=== PATIENT | male | born 1990 | race Caucasian/White ===

== ENCOUNTER 2020-02-08 14:03 | Emergency (ER) | payer BC ==
[2020-02-08] MEDS ORDERED: DEXAMETHASONE SOD PHOSPHATE 10 MG/ML 1 ML VIAL IV STA (14:30)
[2020-02-08] MEDS ORDERED: SODIUM CHLORIDE 0.9% 1,000 ML IV ONE (14:30)
[2020-02-08 14:44] VITALS: RESP 18
--- NOTE | 2020-02-08 14:44 | ED ---
General Adult HPI - General Chief complaint: Allergic Reaction Stated complaint: Allergic Reaction Time Seen by Provider: 02/08/20 14:28 Source: patient, RN notes reviewed, old records reviewed Mode of arrival: ambulatory Limitations: no limitations - History of Present Illness Initial comments: 29-year-old male presenting for evaluation suspected ALLERGIC reaction. Patient admits to drinking 5 shots of vodka. He began to feel somewhat congested, he taken a Zyrtec which was several months . He began noticing some tongue swelling on the left side and some increased congestion. Suspect this may have been an adverse or ALLERGIC reaction to the medication he had taken. He states he was in a home with several cats but does not have a known ALLERGY to cats. He denies vomiting or abdominal pain. - Related Data Allergies Allergy/AdvReac Type Severity Reaction Status Date / Time No Known Allergies Allergy Verified 02/08/20 14:09 Review of Systems ROS Statement: Those systems with pertinent positive or pertinent negative responses have been documented in the HPI. ROS Other: All systems not noted in ROS Statement are negative. Past Medical History Past Medical History: No Reported History History of Any Multi-Drug Resistant Organisms: None Reported Past Surgical History: Adenoidectomy, Tonsillectomy Additional Past Surgical History / Comment(s): facial surgery Past Psychological History: No Psychological Hx Reported Smoking Status: Current every day smoker Past Alcohol Use History: Daily Past Drug Use History: Marijuana General Exam Limitations: no limitations General appearance: alert, in no apparent distress Head exam: Present: atraumatic, normocephalic Eye exam: Present: normal appearance, PERRL ENT exam: Present: normal exam, mucous membranes moist, other (No tongue or lip swelling, mild pharyngeal erythema, no tonsillar swelling, no uvular swelling.) Neck exam: Present: normal inspection. Absent: tenderness, meningismus Respiratory exam: Present: normal lung sounds bilaterally. Absent: respiratory distress, wheezes Cardiovascular Exam: Present: normal rhythm, tachycardia GI/Abdominal exam: Present: soft. Absent: distended, tenderness, guarding, rebound Neurological exam: Present: alert, oriented X3, CN II-XII intact. Absent: motor sensory deficit Psychiatric exam: Present: normal affect, normal mood Skin exam: Present: warm, dry, intact, erythema (Generalized erythema) Course Vital Signs 02/08/20 02/08/20 14:04 14:42 Temperature 98.9 F Pulse Rate 133 H 101 H Respiratory 22 18 Rate Blood Pressure 140/93 129/95 O2 Sat by Pulse 98 96 Oximetry - Reevaluation(s) Reevaluation #1: 02/08/20 15:14 Patient not driving he's been picked up by his . EKG Findings - EKG Comments: EKG Findings:: EKG: Sinus tachycardia, rate of 110, NH interval 138, QRS duration 84, QTC 411, no ST segment elevation. Medical Decision Making - Medical Decision Making 29-year-old male with ALLERGIC first adverse reaction to did Zyrtec versus alcohol. Patient is monitored in the emergency Department, no difficulty breathing, his tachycardia resolves with just IV hydration and IV steroids. As this may have been an adverse reaction to antihistamines, Benadryl was not given. He is instructed to abstain from this medication as well as alcohol. He will return with worsening or changing symptoms. Follow-up with his primary care physician. Disposition Clinical Impression: Allergic reaction Disposition: HOME SELF-CARE Instructions (If sedation given, give patient instructions): General Allergic Reaction (ED) Is patient prescribed a controlled substance at d/c from ED?: No Referrals: None,Stated [Primary Care Provider] - 1-2 days Michele Chino [STAFF PHYSICIAN] - 1-2 days Time of Disposition: 15:14
[2020-02-08 15:31] VITALS: BP 128/79; PULSE 79; TEMP 98.4
== END 2020-02-08 15:29 | disposition home or self-care (01) ==
LOC: EC 14:03
DX: T78.40XA Allergy, unspecified, initial encounter (principal); F17.200 Nicotine dependence, unspecified, uncomplicated
CPT/HCPCS: 93005; 99285; 96374; 96361; J1100

== ENCOUNTER 2021-07-12 08:00 | Emergency (ER) | payer BC ==
--- NOTE | 2021-07-12 08:15 | ED ---
General Adult HPI - General Chief complaint: Recheck/Abnormal Lab/Rx Stated complaint: Rib Pain Time Seen by Provider: 07/12/21 08:06 Source: patient, family, RN notes reviewed Mode of arrival: ambulatory Limitations: no limitations - History of Present Illness Initial comments: Patient is a pleasant 30-year-old male presenting to the emergency Department with right rib pain. Patient was pole vaulting yesterday at his dad's house, who is a high school coach for the track team. Patient landed on the mat however the pole was between him and the mat. Patient has discomfort right posterior ribs since that time. Discomfort increases with position changes. No dyspnea. Only minimal discomfort with deep breaths. No head injury or loss of consciousness. No neck pain. No other area of injury or concern. No history of similar symptoms previously. - Related Data Previous Rx's Medication Instructions Recorded Cyclobenzaprine [Flexeril] 10 mg PO TID PRN #12 tablet 07/12/21 Ibuprofen [Motrin] 600 mg PO Q6HR PRN #20 tab 07/12/21 Allergies Allergy/AdvReac Type Severity Reaction Status Date / Time No Known Allergies Allergy Verified 07/12/21 09:31 Review of Systems ROS Statement: Those systems with pertinent positive or pertinent negative responses have been documented in the HPI. ROS Other: All systems not noted in ROS Statement are negative. Constitutional: Denies: fever Eyes: Denies: eye pain ENT: Denies: ear pain Respiratory: Denies: cough, dyspnea Cardiovascular: Reports: as per HPI. Denies: chest pain Endocrine: Denies: fatigue Gastrointestinal: Denies: abdominal pain Genitourinary: Denies: dysuria Musculoskeletal: Reports: as per HPI Skin: Denies: rash Neurological: Denies: headache Past Medical History Past Medical History: No Reported History History of Any Multi-Drug Resistant Organisms: None Reported Past Surgical History: Adenoidectomy, Tonsillectomy Additional Past Surgical History / Comment(s): facial surgery Past Psychological History: No Psychological Hx Reported Smoking Status: Current every day smoker Past Alcohol Use History: Daily Past Drug Use History: Marijuana General Exam Limitations: no limitations General appearance: alert, in no apparent distress Head exam: Present: atraumatic Eye exam: Present: normal appearance Neck exam: Present: normal inspection. Absent: tenderness Respiratory exam: Present: normal lung sounds bilaterally. Absent: chest wall tenderness Cardiovascular Exam: Present: regular rate, normal rhythm GI/Abdominal exam: Present: soft. Absent: tenderness Extremities exam: Present: normal inspection Back exam: Present: tenderness (Posterior right mid to lower ribs) Neurological exam: Present: alert Psychiatric exam: Present: normal affect, normal mood Skin exam: Present: normal color Course Vital Signs 07/12/21 08:01 Temperature 98.4 F Pulse Rate 97 Respiratory 18 Rate Blood Pressure 143/90 O2 Sat by Pulse 99 Oximetry Medical Decision Making - Medical Decision Making Patient reevaluated and resting comfortably sitting up at bedside. Patient and family updated on results. - Radiology Data Radiology results: image reviewed (Right rib x-ray and chest x-ray shows no acute process) Disposition Clinical Impression: Rib contusion Disposition: HOME SELF-CARE Condition: Stable Instructions (If sedation given, give patient instructions): Rib Contusion (ED) Additional Instructions: Prescriptions have been sent to pharmacy. Please follow-up with primary care physician in the next day or 2 for recheck. Return for difficulty breathing, worsening symptoms or other concerns. Prescriptions: Cyclobenzaprine [Flexeril] 10 mg PO TID PRN #12 tablet PRN Reason: Pain Ibuprofen [Motrin] 600 mg PO Q6HR PRN #20 tab PRN Reason: Pain Is patient prescribed a controlled substance at d/c from ED?: No Referrals: China Shukla MD [REFERRING] - 1-2 days Time of Disposition: 10:02
--- NOTE | 2021-07-12 09:01 | XR ---
EXAMINATION TYPE: XR ribs RT w pa chest xray DATE OF EXAM: 07/12/2021 CLINICAL HISTORY: Chest and right-sided rib pain. TECHNIQUE: Single frontal view of the chest is obtained. A frontal and oblique images right-sided rib s. COMPARISON: Prior chest x-ray February 01, 2012 FINDINGS: There is no new suspicious focal air space opacity, pleural effusion, or pneumothorax seen . The cardiac silhouette size remains within normal limits. The osseous structures are intact. Dedicated images of right-sided ribs show no acute displaced fracture. Healed fracture of the lateral right third rib is seen. No Suspicious sclerotic or destructive right rib lesion. Overlying soft tis lev is unremarkable. IMPRESSION: 1. No acute cardiopulmonary process. 2. No acute displaced right-sided rib fracture.
[2021-07-12] MEDS ORDERED: IBUPROFEN 600 MG TAB PO STA (10:04)
[2021-07-12 10:31] VITALS: BP 128/78; PULSE 75; RESP 16; TEMP 97.8
== END 2021-07-12 10:30 | disposition home or self-care (01) ==
LOC: EC 08:00
DX: S20.219A Contusion of unspecified front wall of thorax, initial encounter (principal); F17.200 Nicotine dependence, unspecified, uncomplicated; W13.3XXA Fall through floor, initial encounter
CPT/HCPCS: 99283

== ENCOUNTER → 2021-08-31 | Outpatient (CLI) | payer BC ==
--- NOTE | 2021-08-31 14:35 | ECHOS ---
STRESS ECHOCARDIOGRAM INDICATION: Palpitations. BASELINE HEART RATE: 78 BASELINE BLOOD PRESSURE: 128/86 MAXIMUM HEART RATE: 188 MAXIMUM BLOOD PRESSURE: 214/84 85% MPHR: 161 100% MPHR: 189 METS: 11.7 MAXIMUM STAGE REACHED: IV TOTAL EXERCISE TIME: 11:00 RESULTS: Baseline EKG shows sinus rhythm, normal axis, normal intervals. Patient exercised on Marcellus protocol for a total of 11 minutes achieving 12 METS, 85% of predicted maximal heart rate, without chest pain or diagnostic ST-segment depression. Baseline echo shows normal left ventricular size, wall motion and systolic function. Postexercise, there is normal hyperdynamic response of all segments of myocardium noted. CONCLUSIONS: 1. Excellent exercise tolerance. 2. Negative stress test by EKG criteria. 3. Negative stress echo. MMODL / IJN: [id number] /
== END | disposition home or self-care (01) ==
LOC: RADNMMAIN 08:56
PROVIDERS: ATTEND Internal Medicine
DX: R00.2 Palpitations (principal)
CPT/HCPCS: 93225; 93226; 93351